=== PATIENT | female | born 1995 | race Caucasian/White ===

== ENCOUNTER 2020-04-15 13:19 | Emergency (ER) | payer OTHER ==
[2020-04-15 13:56] LABS: Urine Blood NEGATIVE (NEG); Urine Glucose NEGATIVE (NEG); Urine Protein NEGATIVE (NEG); Urine pH 5.5 (5.0-7.0)
[2020-04-15 14:09] LABS: Urine Bacteria >50 /HPF (<20); Urine Culture Reflex Order REFLEXED; Urine RBC <5 /HPF (NONE SEEN)
[2020-04-15 14:13] LABS: Absolute Lymphocytes (CBC) 2.8 K/uL (0.7-4.9); Basophils % 1.3 % (0-1.3); Hematocrit 40.6 % (36.0-45.0); Lymphocytes % 38.2 % (15.3-44.8); MPV 9.7 fL (7.6-11.3); RBC Red Blood Cell Count 4.87 M/uL (3.86-4.86)
[2020-04-15 14:30] LABS: ALT/SGPT 25 U/L (12-78); AST/SGOT 21 U/L (15-37); Albumin 4.1 g/dL (3.4-5.0); Alkaline Phosphatase 69 U/L (45-117); BUN Blood Urea Nitrogen 9 mg/dL (7-18); Bicarbonate 26 mmol/L (21-32); Bilirubin Direct 0.1 mg/dL (0-0.2); Bilirubin Total 0.4 mg/dL (0.2-1.0); Glucose Level 108 mg/dL (74-106); Lipase 67 U/L (73-393); Potassium 3.1 mmol/L (3.5-5.1); Protein, Total 8.1 g/dL (6.4-8.2); Sodium Level 142 mmol/L (136-145)
--- NOTE | 2020-04-15 15:02 | RAD REPORT ---
EXAM DESCRIPTION: CT - Abdomen Pelvis W Contrast - 04/15/2020 2:48 pm CLINICAL HISTORY: Abdominal pain COMPARISON: none. TECHNIQUE: Computed axial tomography of the abdomen pelvis was obtained. 100 cc Isovue-300 was admin istered intravenously. Oral contrast was not requested which limits evaluation of bowel. All CT scans are performed using dose optimization technique as appropriate and may include automated exposure control or mA/KV adjustment according to patient size. FINDINGS: The liver, spleen, pancreas, adrenal and kidneys appear unremarkable. There is no evidence of diverticulitis. Normal appendix 4.5 centimeter right ovarian cystic mass with small amount of free fluid A small umbilical hernia IMPRESSION: 4.5 centimeter right ovarian cystic mass with small amount of free fluid likely benign. Follow up ultrasound in a couple months recommended for evaluation
--- NOTE | 2020-04-15 15:08 | ER ---
Nurse's Notes [facility] Name: Nell Huffman Age: 25 yrs Sex: Female : 1995 Arrival Date: 04/15/2020 Time: 13:24 Bed 15 Private MD: Diagnosis: Unspecified ovarian cysts;Urinary tract infection, site not specified Presentation: 04/15 13:42 Chief complaint: Lower abdominal pain x 3 days. Denies N/V/D/fever. Coronavirus screen: ca1 Proceed with normal triage. Ebola Screen: No symptoms or risks identified at this time. Initial Sepsis Screen: Does the patient meet any 2 criteria? No. Patient's initial sepsis screen is negative. Does the patient have a suspected source of infection? No. Patient's initial sepsis screen is negative. Risk Assessment: Do you want to hurt yourself or someone else? Patient reports no desire to harm self or others. Onset of symptoms was April 12, 2020. 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 - Social history:: Smoking status: Patient denies any tobacco usage or history of. Screenin:44 Abuse screen: Denies threats or abuse. Denies injuries from another. Nutritional ca1 screening: No deficits noted. Tuberculosis screening: No symptoms or risk factors identified. Fall Risk None identified. Assessment: 13:54 General: Appears in no apparent distress. comfortable, Behavior is calm, cooperative, ca1 appropriate for age. Pain: Complains of pain in suprapubic area, right lower quadrant and left lower quadrant Pain currently is 8 out of 10 on a pain scale. Quality of pain is described as crampy, pressure, Pain began 2-3 days ago. Neuro: Level of Consciousness is awake, alert, obeys commands, Oriented to person, place, time, situation. Cardiovascular: Heart tones S1 S2 present Capillary refill < 3 seconds Patient's skin is warm and dry. Respiratory: Airway is patent Respiratory effort is even, unlabored, Respiratory pattern is regular, symmetrical, Breath sounds are clear bilaterally. GI: Abdomen is round non-distended, Bowel sounds present X 4 quads. Abd is soft and non tender X 4 quads. : No signs and/or symptoms were reported regarding the genitourinary system. EENT: No signs and/or symptoms were reported regarding the EENT system. Derm: Skin is intact, is healthy with good turgor, Skin is pink, warm \T\ dry. Musculoskeletal: Circulation, motion, and sensation intact. Capillary refill < 3 seconds. 14:55 Reassessment: Patient appears in no apparent distress at this time. Patient and/or ca1 family updated on plan of care and expected duration. Pain level reassessed. Patient is alert, oriented x 3, equal unlabored respirations, skin warm/dry/pink. 15:24 Reassessment: Patient appears in no apparent distress at this time. Patient and/or ca1 family updated on plan of care and expected duration. Pain level reassessed. Patient is alert, oriented x 3, equal unlabored respirations, skin warm/dry/pink. Vital Signs: 13:42 BP 122 / 80; Pulse 93; Resp 16; Temp 97.9; Pulse Ox 100% on R/A; Weight 89.36 kg; ca1 Height 5 ft. 5 in. (165.10 cm); Pain 10/10; 14:55 BP 103 / 54; Pulse 83; Resp 15 S; Pulse Ox 100% on R/A; ca1 13:42 Body Mass Index 32.78 (89.36 kg, 165.10 cm) ca1 ED Course: 13:24 Patient arrived in ED. as 13:42 Mark Deras NP is PHCP. pm1 13:42 Bossman Tamayo MD is Attending Physician. pm1 13:43 Triage completed. ca1 13:43 Arm band placed on. ca1 13:45 Nena Cortes, JOSE M is Primary Nurse. ca1 13:54 Patient has correct armband on for positive identification. Placed in gown. Bed in low ca1 position. Call light in reach. Side rails up X 1. Pulse ox on. NIBP on. Warm blanket given. 14:09 Inserted saline lock: 20 gauge in right antecubital area, using aseptic technique. dh4 14:49 CT Abd/Pelvis - IV Contrast Only In Process Unspecified. EDMS 15:14 No provider procedures requiring assistance completed. ca1 15:50 IV discontinued, intact, bleeding controlled, No redness/swelling at site. Pressure ca1 dressing applied. Administered Medications: 15:13 Drug: Rocephin 1 grams Route: IV; Rate: calculated rate; Site: right antecubital; ca1 15:25 Follow up: Response: No adverse reaction; IV Status: Completed infusion ca1 Outcome: 15:07 Discharge ordered by . pm1 15:50 Discharged to home ambulatory. ca1 15:50 Condition: stable 15:50 Discharge instructions given to patient, Instructed on discharge instructions, follow up and referral plans. medication usage, Demonstrated understanding of instructions, follow-up care, medications, Prescriptions given X 2. 15:50 Patient left the ED. ca1 Addendum: 04/18/2020 11:22 Addendum: Culture Results: Positive urine culture. No further action required. Bacteria i w sensitive to prescribed antibiotic. Signatures: Dispatcher [employer] EDMS Mitra Herring Irene, JOSE M SALGUERO iw Mark Deras NP NURSE AIDE pm1 Nena Cortes RN RN [facility] Wade Pina [facility]
--- NOTE | 2020-04-15 15:08 | EDPHYS ---
Physician Documentation [facility] Name: Nell Huffman Age: 25 yrs Sex: Female : 1995 Arrival Date: 04/15/2020 Time: 13:24 Bed 15 Private MD: ED Physician Bossman Tamayo HPI: 04/15 14:19 This 25 yrs old Female presents to ER via Ambulatory with complaints of pm1 Abdominal Pain. 14:19 The patient presents with abdominal pain , suprapubic. Onset: The symptoms/episode pm1 began/occurred 3 day(s) ago. The symptoms do not radiate. Associated signs and symptoms: Pertinent positives: Increased frequency, Pertinent negatives: nausea, vomiting, and diarrhea, chest pain, fever, shortness of breath. The symptoms are described as sharp. Modifying factors: The symptoms are alleviated by nothing, the symptoms are aggravated by nothing. Severity of pain: in the emergency department the pain is actually worse. The patient has not experienced similar symptoms in the past. 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 - Social history:: Smoking status: Patient denies any tobacco usage or history of. ROS: 14:23 Constitutional: Negative for fever, chills, and weight loss, Cardiovascular: Negative pm1 for chest pain, palpitations, and edema, Respiratory: Negative for shortness of breath, cough, wheezing, and pleuritic chest pain. 14:23 Back: Negative for injury and pain, MS/Extremity: Negative for injury and deformity, Skin: Negative for injury, rash, and discoloration. 14:23 Neuro: Negative for headache, weakness, numbness, tingling, and seizure. 14:23 Abdomen/GI: Positive for abdominal pain, of the suprapubic area, Negative for nausea, vomiting, and diarrhea. 14:23 : Positive for urinary frequency, Negative for small amounts, burning with urination, vaginal discharge. Exam: 14:23 Constitutional: This is a well developed, well nourished patient who is awake, alert, pm1 and in no acute distress. Head/Face: Normocephalic, atraumatic. 14:23 Back: No spinal tenderness. No costovertebral tenderness. Full range of motion. Skin: Warm, dry with normal turgor. Normal color with no rashes, no lesions, and no evidence of cellulitis. MS/ Extremity: Pulses equal, no cyanosis. Neurovascular intact. Full, normal range of motion. 14:23 Cardiovascular: Exam negative for acute changes, Rate: normal, Rhythm: regular, Pulses: no pulse deficits are appreciated, Edema: is not appreciated. 14:23 Respiratory: Exam negative for acute changes, respiratory distress, shortness of breath. 14:23 Abdomen/GI: Inspection: abdomen appears normal, Palpation: soft, in all quadrants, mild abdominal tenderness, in the suprapubic area, mass, is not appreciated, rebound tenderness, is not appreciated. 14:23 Neuro: Exam negative for acute changes, Orientation: is normal, Mentation: is normal, Motor: is normal, moves all fours. Vital Signs: 13:42 BP 122 / 80; Pulse 93; Resp 16; Temp 97.9; Pulse Ox 100% on R/A; Weight 89.36 kg; ca1 Height 5 ft. 5 in. (165.10 cm); Pain 10/10; 14:55 BP 103 / 54; Pulse 83; Resp 15 S; Pulse Ox 100% on R/A; ca1 13:42 Body Mass Index 32.78 (89.36 kg, 165.10 cm) ca1 MDM: 13:45 Patient medically screened. [facility] 14:25 Data reviewed: vital signs. Data interpreted: Pulse oximetry: on room air is 100 %. pm1 Interpretation: normal. 15:05 Counseling: I had a detailed discussion with the patient and/or guardian regarding: the pm1 historical points, exam findings, and any diagnostic results supporting the discharge/admit diagnosis, lab results, radiology results, the need for outpatient follow up, to return to the emergency department if symptoms worsen or persist or if there are any questions or concerns that arise at home. 04/15 13:49 Order name: Urine Microscopic Only; Complete Time: 14:35 ca1 04/15 13:52 Order name: Urine Dipstick--Ancillary (enter results); Complete Time: 14:35 eb 04/15 13:52 Order name: Urine --Ancillary (enter results); Complete Time: 14:35 eb 04/15 13:53 Order name: Basic Metabolic Panel pm1 04/15 13:53 Order name: CBC with Diff; Complete Time: 14:35 pm1 04/15 13:53 Order name: Hepatic Function; Complete Time: 14:35 pm1 04/15 13:49 Order name: Urine Dipstick-Ancillary (obtain specimen); Complete Time: 13:49 ca1 04/15 13:50 Order name: Urine Test (obtain specimen); Complete Time: 13:51 pm1 04/15 13:53 Order name: Lipase; Complete Time: 14:35 pm1 04/15 13:53 Order name: IV Saline Lock; Complete Time: 14:20 pm1 04/15 13:53 Order name: CT Abd/Pelvis - IV Contrast Only; Complete Time: 15:03 pm1 04/15 13:54 Order name: Basic Metabolic Panel; Complete Time: 14:35 EDMS 04/15 14:11 Order name: Urine Culture EDPR 04/15 13:53 Order name: Labs collected and sent; Complete Time: 14:20 pm1 Administered Medications: 15:13 Drug: Rocephin 1 grams Route: IV; Rate: calculated rate; Site: right antecubital; ca1 15:25 Follow up: Response: No adverse reaction; IV Status: Completed infusion ca1 Disposition: 04/16 05:37 Co-signature as Attending Physician, Bossman Tamayo MD I agree with the assessment and raj plan of care. Disposition: 04/15/20 15:07 Discharged to Home. Impression: Urinary tract infection, site not specified, Unspecified ovarian cysts. - Condition is Stable. - Discharge Instructions: Ovarian Cyst, Urinary Tract Infection, Adult. - Prescriptions for Bactrim DS 800- 160 mg Oral Tablet - take 1 tablet by ORAL route every 12 hours for 10 days; 20 tablet. Diclofenac Sodium 75 mg Oral Tablet, Delayed Release (E.C.) - take 1 tablet by ORAL route every 12 hours As needed; 30 tablet. - Medication Reconciliation Form, Thank You Letter, Antibiotic Education, Prescription Opioid Use form. - Follow up: Emergency Department; When: As needed; Reason: Worsening of condition. Follow up: Private Physician; When: 2 - 3 days; Reason: Recheck today's complaints, Continuance of care, Re-evaluation by your physician. - Problem is new. - Symptoms have improved. Signatures: Dispatcher [employer] EDBossman Hicks, Mark Savage MD, cha, DIE PRESS OPERATOR DIE PRESS OPERATOR pm1 Nena Cortes RN RN ca1 Corrections: (The following items were deleted from the chart) 04/15 15:50 15:07 04/15/2020 15:07 Discharged to Home. Impression: Urinary tract infection, site ca1 not specified; Unspecified ovarian cysts. Condition is Stable. Forms are Medication Reconciliation Form, Thank You Letter, Antibiotic Education, Prescription Opioid Use. Follow up: Emergency Department; When: As needed; Reason: Worsening of condition. Follow up: Private Physician; When: 2 - 3 days; Reason: Recheck today's complaints, Continuance of care, Re-evaluation by your physician. Problem is new. Symptoms have improved. pm1
[2020-04-15] MEDS ORDERED: CEFTRIAXONE/SWI 1gm 1 GM/10 ML SYR ONE (15:21)
[2020-04-15 16:00] VITALS: TEMP 97.9; O2SAT 100
[2020-04-15 16:02] VITALS: BP 103/54
== END 2020-04-15 15:50 | disposition home or self-care (01) ==
LOC: ER 13:19
DX: N39.0 Urinary tract infection, site not specified (principal); N83.209 Unspecified ovarian cyst, unspecified side
CPT/HCPCS: 87088; 85025; 87086; 80048; 36415; 81025; 82565; 80076; 87077; 87186; 83690; 74177; 96374; 99284; Q9967; J0696; 81003; 81015

== ENCOUNTER 2021-07-17 20:46 | Emergency (ER) | payer OTHER ==
[2021-07-17 22:04] LABS: Urine Blood Negative (Negative); Urine Glucose Negative (Negative); Urine Protein Negative (Negative); Urine Specific Gravity 1.015 (1.005-1.030); Urine pH 5.5 (5.0-7.0)
[2021-07-17] MEDS ORDERED: MORPHINE 2 MG/ML SYR ONE (22:37)
[2021-07-17] MEDS ORDERED: NA CHLORIDE 0.9% 1,000 ML ONE (22:37)
[2021-07-17 22:41] LABS: Absolute Lymphocytes (CBC) 2.9 K/uL (0.7-4.9); Basophils % 0.8 % (0-1.3); Hematocrit 38.5 % (36.0-45.0); Lymphocytes % 44.9 % (15.3-44.8); MPV 8.7 fL (7.6-11.3)
[2021-07-17 22:51] LABS: ALT/SGPT 30 U/L (12-78); AST/SGOT 22 U/L (15-37); Albumin 4.2 g/dL (3.4-5.0); Alkaline Phosphatase 76 U/L (45-117); BUN Blood Urea Nitrogen 10 mg/dL (7-18); Bicarbonate 24 mmol/L (21-32); Bilirubin Direct 0.2 mg/dL (0-0.2); Bilirubin Total 0.5 mg/dL (0.2-1.0); Glucose Level 89 mg/dL (74-106); Lipase 43 U/L (73-393); Potassium 3.4 mmol/L (3.5-5.1); Protein, Total 7.9 g/dL (6.4-8.2); Sodium Level 142 mmol/L (136-145)
[2021-07-17 23:27] LABS: Urine Specific Gravity/Preg 1.015 (1.005-1.030)
--- NOTE | 2021-07-18 01:37 | ER ---
Nurse's Notes [facility] Name: Nell Huffman Age: 26 yrs Sex: Female : 1995 Arrival Date: 07/17/2021 Time: 20:57 Bed 19 Private MD: Diagnosis: Pelvic and perineal pain;Lower abdominal pain, unspecified Presentation: 07/17 21:14 Chief complaint: Patient states: bilateral flank/lower abd pain. Coronavirus screen: df1 Vaccine status: Patient reports receiving the 2nd dose of the covid vaccine. At this time, the client does not indicate any symptoms associated with coronavirus-19. Ebola Screen: Patient negative for fever greater than or equal to 101.5 degrees Fahrenheit, and additional compatible Ebola Virus Disease symptoms Patient denies exposure to infectious person. Patient denies travel to an Ebola-affected area in the 21 days before illness onset. Initial Sepsis Screen: Does the patient meet any 2 criteria? No. Patient's initial sepsis screen is negative. Does the patient have a suspected source of infection? No. Patient's initial sepsis screen is negative. Risk Assessment: Do you want to hurt yourself or someone else? Patient reports no desire to harm self or others. 21:14 Method Of Arrival: Ambulatory df1 21:14 Acuity: KEN 3 df1 21:17 Note Pt dx with UTI last Thursday treating with Cipro. Pt states pain has increased df1 with back pain. 21:41 Onset of symptoms is unknown. 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 - Social history:: Smoking status: Patient denies any tobacco usage or history of. Screenin:50 Abuse screen: Denies threats or abuse. Denies injuries from another. Nutritional ld1 screening: No deficits noted. Tuberculosis screening: No symptoms or risk factors identified. Fall Risk None identified. Assessment: 21:50 General: Appears in no apparent distress. uncomfortable, Behavior is calm, cooperative, ld1 appropriate for age. Pain: Complains of pain in left low back, right low back, right lower quadrant and left lower quadrant Pain does not radiate. Pain currently is 7 out of 10 on a pain scale. Quality of pain is described as throbbing, Pain began 2-3 days ago. Is continuous. Neuro: Level of Consciousness is awake, alert, obeys commands, Oriented to person, place, time, situation. Cardiovascular: Capillary refill < 3 seconds Patient's skin is warm and dry. Respiratory: Airway is patent Respiratory effort is even, unlabored, Respiratory pattern is regular, symmetrical. GI: Abdomen is round non-distended, Bowel sounds present X 4 quads. Abd is soft Abdomen is tender to palpation X 4 quads. : No signs and/or symptoms were reported regarding the genitourinary system. EENT: No signs and/or symptoms were reported regarding the EENT system. Derm: No signs and/or symptoms reported regarding the dermatologic system. Musculoskeletal: No signs and/or symptoms reported regarding the musculoskeletal system. 23:21 Reassessment: Patient appears in no apparent distress at this time. No changes from ld1 previously documented assessment. Patient and/or family updated on plan of care and expected duration. Pain level reassessed. Patient is alert, oriented x 3, equal unlabored respirations, skin warm/dry/pink. Vital Signs: 21:14 BP 113 / 70; Pulse 86; Resp 18; Temp 98.3; Pulse Ox 100% on R/A; Weight 87.09 kg; df1 Height 5 ft. 5 in. (165.10 cm); Pain 7/10; 21:50 BP 118 / 72; Pulse 89; Resp 18; Pulse Ox 100% on R/A; Pain 7/10; ld1 23:21 BP 122 / 77; Pulse 90; Resp 18; Pulse Ox 100% ; ld1 07/18 00:06 BP 120 / 74; Pulse 88; Resp 18; Temp 98.6(O); Pulse Ox 100% on R/A; Pain 2/10; kc4 01:23 BP 124 / 76; Pulse 78; Resp 18; Temp 98.6(O); Pulse Ox 100% on R/A; kc4 01:49 BP 122 / 78; Pulse 88; Resp 18; Pulse Ox 99% on R/A; Pain 0/10; kc4 07/17 21:14 Body Mass Index 31.95 (87.09 kg, 165.10 cm) df1 ED Course: 07/17 20:57 Patient arrived in ED. cf2 21:15 Triage completed. df1 21:46 Allison Song, RN is Primary Nurse. ld1 21:50 Patient has correct armband on for positive identification. Call light in reach. ld1 21:50 Pulse ox on. NIBP on. Door closed. Noise minimized. Warm blanket given. ld1 21:50 No provider procedures requiring assistance completed. ld1 21:55 Bossman Bella PA is PHCP. cp 21:55 Rod Huerta MD is Attending Physician. cp 21:55 Arm band placed on. kc4 23:39 CT Abd/Pelvis - IV Contrast Only In Process Unspecified. EDMS 07/18 01:31 Wet Prep Sent. em 01:31 GC (GONORR/CHLAMYDIA) Probe Sent. em 01:50 IV discontinued, intact, bleeding controlled, No redness/swelling at site. Pressure kc4 dressing applied. Administered Medications: 07/17 22:24 Drug: morphine 2 mg Route: IVP; Site: right antecubital; ld1 22:24 Drug: NS 0.9% 1000 ml Route: IV; Rate: 1 bolus; Site: right antecubital; ld1 23:23 Follow up: Response: No adverse reaction; IV Status: Completed infusion; IV Intake: ld1 1000ml 07/18 01:41 Drug: Zithromax (azithromycin) 1 grams Route: PO; kc4 01:51 Follow up: Response: No adverse reaction kc4 01:41 Drug: Rocephin (cefTRIAXone) 1 grams Route: IV; Rate: calculated rate; Site: right kc4 antecubital; 01:51 Follow up: Response: No adverse reaction; IV Status: Completed infusion kc4 Intake: 07/17 23:23 IV: 1000ml; Total: 1000ml. ld1 Outcome: 07/18 01:36 Discharge ordered by . cp 01:49 Condition: stable kc4 01:50 Discharged to home ambulatory, with significant other. kc4 01:50 Discharge instructions given to patient, significant other, Instructed on discharge instructions, follow up and referral plans. medication usage, Demonstrated understanding of instructions, follow-up care, medications. 01:52 Patient left the ED. kc4 Signatures: Dispatcher [employer] Catrachito Mckeon RN RN Bossman Power PA PA cp Frazier, Celesta 2 Allison Song RN RN ld1 Faith Peterson kc4 Billie Carbajal df1
--- NOTE | 2021-07-18 01:38 | EDPHYS ---
Physician Documentation [facility] Name: Nell Huffman Age: 26 yrs Sex: Female : 1995 Arrival Date: 07/17/2021 Time: 20:57 Bed 19 Private MD: ED Physician Rod Huerta HPI: 07/17 22:15 This 26 yrs old Female presents to ER via Ambulatory with complaints of cp Abdominal Pain. 22:15 The patient presents with abdominal pain in the lower abdomen. cp 22:15 The patient presents with pelvic pain. cp 22:15 Onset: The symptoms/episode began/occurred last week. 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 Patient reports worsening pain and reports pain with intercourse. 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 - Social history:: Smoking status: Patient denies any tobacco usage or history of. ROS: 22:20 Constitutional: Negative for body aches, chills, fever, poor PO intake. cp 22:20 Eyes: Negative for injury, pain, redness, and discharge. cp 22:20 Cardiovascular: Negative for chest pain. 22:20 Respiratory: Negative for cough, shortness of breath, wheezing. 22:20 Abdomen/GI: Positive for abdominal pain, of the suprapubic area, right lower quadrant and left lower quadrant. 22:20 : Positive for pelvic pain, flank pain, Negative for vaginal bleeding, vaginal discharge. 22:20 Skin: Negative for rash. 22:20 All other systems are negative. Exam: 22:30 Constitutional: The patient appears in no acute distress, alert, awake, non-toxic, well cp developed, well nourished. 22:30 Head/Face: Normocephalic, atraumatic. cp 22:30 Eyes: Periorbital structures: appear normal, Conjunctiva: normal, no exudate, no injection, Sclera: no appreciated abnormality, Lids and lashes: appear normal, bilaterally. 22:30 ENT: External ear(s): are unremarkable, Nose: is normal, Mouth: Lips: moist, Oral mucosa: moist, Posterior pharynx: Airway: no evidence of obstruction, patent. 22:30 Chest/axilla: Inspection: normal. 22:30 Cardiovascular: Rate: normal. 22:30 Respiratory: the patient does not display signs of respiratory distress, Respirations: normal, no use of accessory muscles, no retractions, labored breathing, is not present, Breath sounds: are clear throughout, no decreased breath sounds, no stridor, no wheezing. 22:30 Abdomen/GI: Inspection: abdomen appears normal, Bowel sounds: active, all quadrants, Palpation: soft, in all quadrants, moderate abdominal tenderness, in the right lower quadrant and left lower quadrant, rebound tenderness, is not appreciated, involuntary guarding, is not appreciated. 22:30 Back: CVA tenderness, is absent. 07/18 01:30 : Pelvic Exam: External exam: is normal, Speculum exam: no bleeding is noted, no cp cervicitis, os that is closed, bimanual exam reveals cervical motion tenderness, os that is closed, uterine tenderness, right adnexal tenderness, left adnexal tenderness, no adnexal mass on right, no adnexal mass on left, discharge, white, the nurse was present for the exam, Sexual behavior: the patient is sexually active, and reports a single partner. Vital Signs: 07/17 21:14 BP 113 / 70; Pulse 86; Resp 18; Temp 98.3; Pulse Ox 100% on R/A; Weight 87.09 kg; df1 Height 5 ft. 5 in. (165.10 cm); Pain 7/10; 21:50 BP 118 / 72; Pulse 89; Resp 18; Pulse Ox 100% on R/A; Pain 7/10; ld1 23:21 BP 122 / 77; Pulse 90; Resp 18; Pulse Ox 100% ; ld1 07/18 00:06 BP 120 / 74; Pulse 88; Resp 18; Temp 98.6(O); Pulse Ox 100% on R/A; Pain 2/10; kc4 01:23 BP 124 / 76; Pulse 78; Resp 18; Temp 98.6(O); Pulse Ox 100% on R/A; kc4 01:49 BP 122 / 78; Pulse 88; Resp 18; Pulse Ox 99% on R/A; Pain 0/10; kc4 07/17 21:14 Body Mass Index 31.95 (87.09 kg, 165.10 cm) df1 MDM: 07/17 21:57 Patient medically screened. cp 07/18 01:35 Data reviewed: vital signs, nurses notes, lab test result(s), radiologic studies, CT cp scan. 01:35 Differential diagnosis: ovarian cyst, pelvic inflammatory disease, urinary tract cp infection, vaginosis, appendicitis, Ovarian Torsion. Counseling: I had a detailed discussion with the patient and/or guardian regarding: the historical points, exam findings, and any diagnostic results supporting the discharge/admit diagnosis, lab results, radiology results, the need for outpatient follow up, an OB/Gyne specialist, to return to the emergency department if symptoms worsen or persist or if there are any questions or concerns that arise at home. Response to treatment: the patient's symptoms have markedly improved after treatment, and as a result, I will discharge patient. 07/17 21:31 Order name: Urine --Ancillary (enter results); Complete Time: 23:28 mw2 07/17 22:04 Order name: Urine Dipstick-Ancillary; Complete Time: 22:07 EDMS 07/17 22:07 Order name: Basic Metabolic Panel; Complete Time: 23:28 cp 07/17 23:28 Interpretation: Normal except: K 3.4; CL 109. cp 07/17 22:07 Order name: CBC with Diff; Complete Time: 23:28 cp 07/17 23:28 Interpretation: Normal except: LYM% 44.9. cp 07/17 22:07 Order name: Hepatic Function; Complete Time: 23:28 cp 07/17 23:29 Interpretation: Normal except: GLOB 3.7. cp 07/17 22:07 Order name: Lipase; Complete Time: 23:28 cp 07/17 23:30 Interpretation: Abnormal: LIP 43. cp 07/17 21:25 Order name: Urine Dipstick-Ancillary (obtain specimen); Complete Time: 21:29 df1 07/17 22:07 Order name: CT Abd/Pelvis - IV Contrast Only cp 07/18 00:36 Order name: GC (GONORR/CHLAMYDIA) Probe cp 07/18 00:36 Order name: Wet Prep; Complete Time: 01:45 cp 07/17 21:25 Order name: Urine Test (obtain specimen); Complete Time: 21:31 df1 07/17 22:07 Order name: IV Saline Lock; Complete Time: 22:24 cp 07/17 22:07 Order name: Labs collected and sent; Complete Time: 22:24 cp 07/18 00:36 Order name: Pelvic Exam Setup; Complete Time: 01:23 cp Administered Medications: 07/17 22:24 Drug: morphine 2 mg Route: IVP; Site: right antecubital; ld1 22:24 Drug: NS 0.9% 1000 ml Route: IV; Rate: 1 bolus; Site: right antecubital; ld1 23:23 Follow up: Response: No adverse reaction; IV Status: Completed infusion; IV Intake: ld1 1000ml 07/18 01:41 Drug: Zithromax (azithromycin) 1 grams Route: PO; kc4 01:51 Follow up: Response: No adverse reaction kc4 01:41 Drug: Rocephin (cefTRIAXone) 1 grams Route: IV; Rate: calculated rate; Site: right kc4 antecubital; 01:51 Follow up: Response: No adverse reaction; IV Status: Completed infusion kc4 Disposition: 02:14 Co-signature as Attending Physician, Rod Huerta MD. pkl Disposition Summary: 07/18/21 01:36 Discharge Ordered Location: Home cp Problem: new cp Symptoms: have improved cp Condition: Stable cp Diagnosis - Pelvic and perineal pain cp - Lower abdominal pain, unspecified cp Followup: cp - With: Private Physician - When: 1 week - Reason: Recheck today's complaints Discharge Instructions: - Discharge Summary Sheet cp - Abdominal Pain, Adult cp - Pelvic Pain, Female cp Forms: - Medication Reconciliation Form cp - Thank You Letter cp - Antibiotic Education cp - Prescription Opioid Use cp Prescriptions: - Zofran 4 mg Oral Tablet - take 1 tablet by ORAL route every 12 hours As needed; 20 tablet; Refills: 0, cp Product Selection Permitted - Doxycycline Hyclate 100 mg Oral Tablet - take 1 tablet by ORAL route every 12 hours; 20 tablet; Refills: 0, Product cp Selection Permitted - Metronidazole 500 mg Oral Tablet - take 1 tablet by ORAL route every 8 hours; 30 tablet; Refills: 0, Product cp Selection Permitted - Diclofenac Sodium 75 mg Oral tablet,delayed release (DR/EC) - take 1 tablet by ORAL route 2 times per day; 20 tablet; Refills: 0, Product cp Selection Permitted Signatures: Dispatcher [employer] Rod Awad MD MD pkl Bossman Bella PA PA cp Dibbern, Lauren, JOSE M RN ld1 [facility] Billie Carbajal df1
[2021-07-18] MEDS ORDERED: CEFTRIAXONE 1000 MG/VIAL ONE (01:59)
[2021-07-18] MEDS ORDERED: AZITHROMYCIN 250 MG TAB ONE (01:59)
[2021-07-18 02:03] VITALS: TEMP 98.6
[2021-07-18 02:07] VITALS: BP 122/78; O2SAT 99
--- NOTE | 2021-07-18 12:14 | RAD REPORT ---
EXAM DESCRIPTION: CT - Abdomen Pelvis W Contrast - 07/18/2021 6:15 am CLINICAL HISTORY: 26 years Female lower abdomen pain TECHNIQUE: Contiguous axial images obtained through the abdomen and pelvis following intravenous con trast administration. Coronal and sagittal reformatted images provided. This CT exam was performed according to our departmental dose-optimization program, which includes on e or more of the following dose reduction techniques: automated exposure control, adjustment of the m A and/or kV according to patient size, and/or use of iterative reconstruction technique. COMPARISON: 04/15/2020 FINDINGS: Previously seen right ovarian cyst has resolved. Normal ovaries and uterus. The appendix is normal. Mild colonic constipation without bowel inflammation, obstruction, free intra peritoneal air, or ascites. The lung bases, liver, biliary tree, gallbladder, pancreas, spleen, adrenal glands, kidneys, urinary bladder, and osseous structures are unremarkable. IMPRESSION: Mild colonic constipation without bowel inflation. No other acute abdominal or pelvic abnormalities. Previously seen right ovarian cyst has resolved. Electronically signed by: Romy Perea MD 07/17/2021 11:51 PM CDT Due to temporary technical issues with the PACS/Fluency reporting system, reports are being signed by the in house radiologist without review as a courtesy to ensure prompt reporting. The interpreting r adiologist is fully responsible for the content of the report.
[2021-07-24 03:52] LABS: C.trachomatis RNA,TMA Not Detected (Not Detected)
== END 2021-07-18 01:52 | disposition home or self-care (01) ==
LOC: ER 20:46
DX: R10.2 Pelvic and perineal pain (principal)
CPT/HCPCS: 96361; 85025; 80048; 36415; 81025; 80076; 87210; 81003; 83690; 87590; 87490; 74177; 96375; 96374; 99284; Q9967; J2270; J7030

== ENCOUNTER 2022-01-15 11:52 | Emergency (ER) | payer OTHER ==
--- OUTSIDE RECORDS SUMMARY | 2022-01-15 11:55 | XMS REPORT | Continuity of Care Document ---
:[address] [facility] t Address [address] [place] [address] Care Team Providers Name Role Phone Sheri Hendrickson Primary Care Physician RADIOLOGY Attending Clinician Unavailable Radiology Attending Clinician Unavailable Dominic DIRECTOR OF AGRICULTURE Attending Clinician DOMINIC Attending Clinician Unavailable Doctor Unassigned, Name Attending Clinician Unavailable Payers Payer Name Policy Type Policy Number Effective Date Expiration Date S ource Problems This patient has no known problems. Allergies, Adverse Reactions, Alerts Allergy Allergy Status Severity Reaction(s) Onset Inactive Treating Comm ents Source Name Type Date Date Clinician NO KNOWN Drug Active [facility]I [facility] Social History Social Habit Start Date Stop Date Quantity Comments Source Exposure to Not sure [facility] SARS-CoV-2 (event) Medica l Branch Sex Assigned At [birth year] [facility] 00:00:00 00:00:00 Medical Branch Smoking Status Start Date Stop Date Source Unknown if ever smoked [facility] Medical Branch Medications This patient has no known medications. Procedures Procedure Date / Time Performed Performing Clinician John rachna BI ULTRASOUND BREAST 2021-06-11 17:06:45 Requisition, Paper [facility] LIMITED [facility] Medical Branch BI ULTRASOUND BREAST 2021-04-09 18:58:41 Theodora Alfaro [facility] COMPLETE [facility] Medical Branch CONSENT/REFUSAL FOR 2021-04-09 18:20:12 Doctor Unassigned, No [facility] DIAGNOSIS AND [facility] Medical Branch TREATMENT ASSIGNMENT OF BENEFITS 2021-04-09 18:19:57 Doctor Unassigned, No [facility] Medical Branch Encounters Start End Encounter Admission Attending Care Care Encounter Source Date/Time Date/Time Type Type Clinicians Facility Department ID 2021-06-14 2021-06-14 Outpatient R RADIOLOGY [facility] [id number] Univers 17:00:00 17:00:00 [id number] ity [facility] 2021-06-11 2021-06-11 [facility] Radiology [facility] [id number] Univers 11:00:00 23:59:00 Encounter Asif [id number] ity [facility] [id number] [facility] [id number] [facility] 806 Branch 2021-06-11 2021-06-11 Outpatient [facility] [id number] Univers 11:00:00 11:00:00 [id number] ity [facility] 2021-06-11 2021-06-11 Outpatient R RADIOLOGY [facility] [id number] Univers 00:00:00 00:00:00 ity of [facility] 2021-04-09 2021-04-09 [facility] [id number] Univers 13:23:46 23:59:00 Encounter Theodora Gold [id number] ity of [place] [id number] [facility] [id number] [facility] 806 Branch 2021-04-09 2021-04-09 Outpatient R [facility] [id number] Univers 00:00:00 00:00:00 THEODORA avendano [facility] 2021-04-09 2021-04-09 Orders Doctor MENDOZA [id number] Univers 00:00:00 00:00:00 Only Unassigned, ROXY [id number] ity of [place] [facility] [id number] [facility] [id number] [place] [address] Branch Results Test Description Test Time Test Comments Results Result [facility] e Comments BI ULTRASOUND 2021-04-09 Examination:BI Univers ity of BREAST COMPLETE 19:25:[address] [facility] LEFT BREAST COMPLETE Branch LEFT History:Patient is 26 year old and is seen for: ?Unspecified lump in the left breast, upper inner quadrant. Comparisons : None available Findings:Survey ultrasound of the left breast and axilla was performed. There is no evidence of suspicious masses or other abnormal findings in the left breast or axilla. Specifically, a ridge of normal-appearing breast tissue is noted at the palpable area of concern in the left breast at 9:00, 6 cm from the nipple. Impression: There is no sonographic evidence of malignancy. Recommendation:F ollow-up at age 40 or based on current ACR guidelines Clinical follow-up is also recommended, and further management of clinical findings should be based on the results of clinical evaluation. BI-RADS Category:Left 1 - Negative
--- NOTE | 2022-01-15 12:45 | RAD REPORT ---
EXAM DESCRIPTION: Radha Single View01/15/2022 12:38 pm CLINICAL HISTORY: Chest pain COMPARISON: none FINDINGS: Haziness overlying the lung bases. Main lungs appear clear. The lungs appear clear of acute infiltrate. The heart is normal size IMPRESSION: Haziness overlying the lung bases likely overlying soft tissue. If patient has clinical symptoms to suggest an infiltrate then PA and lateral chest series would be recommended
[2022-01-15 13:12] LABS: Lymphocytes % 38.3 % (15.3-44.8); MPV 8.7 fL (7.6-11.3); RBC Red Blood Cell Count 5.28 M/uL (3.86-4.86)
[2022-01-15 13:15] LABS: Protime INR 0.97
[2022-01-15 13:24] LABS: ALT/SGPT 25 U/L (12-78); AST/SGOT 15 U/L (15-37); Alkaline Phosphatase 86 U/L (45-117); BUN Blood Urea Nitrogen 8 mg/dL (7-18); Bicarbonate 27 mmol/L (21-32); Bilirubin Direct 0.1 mg/dL (0-0.2); Bilirubin Total 0.3 mg/dL (0.2-1.0); Glucose Level 110 mg/dL (74-106); Magnesium 1.9 mg/dL (1.8-2.4); NT PRO-BNP 14 pg/mL (<125); Potassium 3.5 mmol/L (3.5-5.1); Protein, Total 7.9 g/dL (6.4-8.2); Sodium Level 138 mmol/L (136-145)
[2022-01-15 13:25] LABS: Troponin High Sensitivity < 3.0 pg/mL (<58.9)
[2022-01-15] MEDS ORDERED: ONDANSETRON 4 MG/2 ML VIAL ONE (14:46)
[2022-01-15] MEDS ORDERED: MORPHINE 4 MG/ML SYR ONE (14:46)
--- NOTE | 2022-01-15 15:55 | RAD REPORT ---
EXAM DESCRIPTION: 22 - Chest For Pe Angio - 01/15/2022 3:22 pm CLINICAL HISTORY: Chest pain COMPARISON: None. TECHNIQUE: Dynamically enhanced axial 3 mm thick images of the chest were obtained during administra tion of <100> mL Isovue 370 IV contrast. Coronal and oblique reconstruction images were generated and reviewed. Exam utilizes a protocol for optimal evaluation of pulmonary arterial tree. Maximum intensity projections 3D imaging was utilized All CT scans are performed using dose optimization technique as appropriate and may include automated exposure control or mA/KV adjustment according to patient size. FINDINGS: A pulmonary embolus is not seen. A thoracic aortic aneurysm is not noted. A pleural effusion is not seen. A pericardial effusion is not seen. Calcified granuloma left lung. 4 millimeters subpleural nodule left lower lobe. IMPRESSION: Negative for a pulmonary embolism. 4 millimeter nodule left lower lobe likely benign. If patient is high risk follow up CT chest in 6-12 months would be recommended per Fleischner guidelines
--- NOTE | 2022-01-15 16:20 | EDPHYS ---
Physician Documentation [facility] Name: Nell Huffman Age: 26 yrs Sex: Female : 1995 Arrival Date: 01/15/2022 Time: 11:54 Bed 17 Private MD: ED Physician Casper Singleton HPI: 01/15 12:04 This 26 yrs old Female presents to ER via Ambulatory with complaints of Chest Pain, Arm jmm Pain. 12:04 The patient or guardian reports chest pain that is located primarily in the substernal jmm area. The pain radiates to the left arm. This is a 26-year-old female no Janay conditions presents emerged department with complaints of left breast pain which radiates to the left axilla. Symptoms been ongoing for approximately 2 months now. Patient did have an outpatient ultrasound performed. Patient denies fever or chills. Patient states pain has intensified recently. Complains of some mild shortness of breath. Denies fever. Denies redness or drainage.. Historical: - Allergies: 12:01 No Known Allergies; ll1 - PMHx: 12:01 None; ll1 - PSHx: 12:01 section; ll1 - Immunization history:: Client reports receiving the 2nd dose of the Covid vaccine. - Social history:: Smoking status: Patient denies any tobacco usage or history of. ROS: 12:04 Constitutional: Negative for fever, chills, and weight loss. jmm 12:04 Cardiovascular: Positive for chest pain. 12:04 All other systems are negative. Exam: 12:04 Constitutional: This is a well developed, well nourished patient who is awake, alert, jmm and in no acute distress. Head/Face: atraumatic. Eyes: EOMI, no conjunctival erythema appreciated ENT: Moist Mucus Membranes Neck: Trachea midline, Supple Chest/axilla: Normal chest wall appearance and motion. 12:04 Respiratory: Normal respirations, no respiratory distress appreciated Abdomen/GI: Non distended, soft Back: Normal ROM Skin: General appearance color normal MS/ Extremity: Moves all extremities, no obvious deformities appreciated, no edema noted to the lower extremities Neuro: Awake and alert Psych: Behavior is normal, Mood is normal, Patient is cooperative and pleasant 12:04 Chest/axilla: Inspection: normal, Palpation: is normal, Breasts: swelling, that is mild of the left breast. 12:04 Cardiovascular: Rate: normal, Rhythm: regular. 12:04 Respiratory: the patient does not display signs of respiratory distress, Respirations: normal, Breath sounds: are clear throughout. Vital Signs: 12:02 BP 121 / 80; Pulse 102; Resp 16; Temp 97.6; Pulse Ox 100% ; Weight 95.25 kg; Height 5 ll1 ft. 5 in. (165.10 cm); Pain 8/10; 16:39 BP 98 / 66; Pulse 85; Resp 17; Temp 97.8(O); Pulse Ox 100% ; Pain 1/10; ll1 12:02 Body Mass Index 34.95 (95.25 kg, 165.10 cm) ll1 MDM: 12:04 Patient medically screened. [facility] 16:16 Data reviewed: vital signs, nurses notes. Counseling: I had a detailed discussion with osman the patient and/or guardian regarding: the historical points, exam findings, and any diagnostic results supporting the discharge/admit diagnosis, lab results, radiology results, the need for outpatient follow up, to return to the emergency department if symptoms worsen or persist or if there are any questions or concerns that arise at home. ED course: Labs and imaging studies were unremarkable. Patient advised to follow-up with general surgery for evaluation due to left breast pain. Stated that the I would be unable to rule out malignancy. I do not currently suspect abscess. Patient is afebrile. Skin is not indurated.. 01/15 12:05 Order name: Basic Metabolic Panel; Complete Time: 13: [facility] 01/15 12:05 Order name: CBC with Diff; Complete Time: 13:18 [facility] 01/15 12:05 Order name: LFT's; Complete Time: 13: [facility] 01/15 12:05 Order name: Magnesium; Complete Time: 13: [facility] 01/15 12:05 Order name: NT PRO-BNP; Complete Time: 13: [facility] 01/15 12:05 Order name: Troponin HS; Complete Time: 13: [facility] 01/15 12:05 Order name: XRAY Chest (1 view); Complete Time: 12:46 [facility] 01/15 12:05 Order name: EKG; Complete Time: 12:05 [facility] 01/15 12:38 Order name: D-Dimer; Complete Time: 13:34 [facility] 01/15 13:05 Order name: Protime (+INR); Complete Time: 13:34 [facility] 01/15 13:32 Order name: CT Chest For PE Angio; Complete Time: 15:56 [facility] 01/15 12:05 Order name: Cardiac monitoring; Complete Time: 12:12 [facility] 01/15 12:05 Order name: EKG - Nurse/Tech; Complete Time: 12:12 [facility] 01/15 12:05 Order name: IV Saline Lock; Complete Time: 13:00 [facility] 01/15 12:05 Order name: Labs collected and sent; Complete Time: 13:00 [facility] 01/15 12:05 Order name: O2 Per Protocol; Complete Time: 12:12 [facility] 01/15 12:05 Order name: O2 Sat Monitoring; Complete Time: 12:12 [facility] 01/15 14:40 Order name: Urine Test (obtain specimen) [facility] Administered Medications: 14:45 Drug: Zofran (Ondansetron) 4 mg Route: IVP; Site: right antecubital; ll1 16:30 Follow up: Response: No adverse reaction ll1 14:46 Drug: morphine 4 mg Route: IVP; Site: right antecubital; ll1 16:30 Follow up: Response: Pain is decreased ll1 Disposition: 18:03 Co-signature as Attending Physician, Casper Singleton MD I agree with the assessment and kdr plan of care. Disposition Summary: 01/15/22 16:19 Discharge Ordered Location: Home [facility] Condition: Stable [facility] Diagnosis - Chest pain, unspecified jmm - Breast Pain [facility] Followup: [facility] - With: Private Physician - When: 2 - 3 days - Reason: Recheck today's complaints, Continuance of care, Re-evaluation by your physician Followup: [facility] - With: Mil Mc MD - When: 2 - 3 days - Reason: Recheck today's complaints, Continuance of care, Re-evaluation by your physician Discharge Instructions: - Discharge Summary Sheet jmm - Nonspecific Chest Pain, Adult jmm - Breast Tenderness m Forms: - Medication Reconciliation Form [facility] - Thank You Letter [facility] - Antibiotic Education [facility] - Prescription Opioid Use [facility] Prescriptions: - Diclofenac Sodium 75 mg Oral Tablet Sustained Release - take 1 tablet by ORAL route 2 times per day; 30 tablet; Refills: 0, Product [facility] Selection Permitted - orphenadrine citrate 100 mg Oral Tablet Sustained Release - take 1 tablet by ORAL route 2 times per day As needed; 20 tablet; Refills: 0, [facility] Product Selection Permitted Signatures: Dispatcher [employer] EDMS Casper Singleton MD MD kdr Mickail, Joel, PA PA jmm Lewis, Lynsay RN RN ll1 Corrections: (The following items were deleted from the chart) 13:05 12:05 PROTIME (+INR)+[email or web address].BRZ ordered. [facility]OK EDMS
--- NOTE | 2022-01-15 16:20 | ER ---
Nurse's Notes [facility] Name: Nell Huffman Age: 26 yrs Sex: Female : 1995 Arrival Date: 01/15/2022 Time: 11:54 Bed 17 Private MD: Diagnosis: Chest pain, unspecified;Breast Pain Presentation: 01/15 12:02 Chief complaint: Patient states: L sided CP radiates down L arm for a few weeks, more ll1 constant this week. Saw here PCP 2 weeks ago for this. Concerned it might be her heart or breast problem. Coronavirus screen: Vaccine status: Patient reports receiving the 2nd dose of the covid vaccine. Client denies travel out of the [place] in the last 14 days. At this time, the client does not indicate any symptoms associated with coronavirus-19. Ebola Screen: Patient denies travel to an Ebola-affected area in the 21 days before illness onset. Initial Sepsis Screen: Does the patient meet any 2 criteria? HR > 90 bpm. No. Patient's initial sepsis screen is negative. Does the patient have a suspected source of infection? No. Patient's initial sepsis screen is negative. Risk Assessment: Do you want to hurt yourself or someone else? Patient reports no desire to harm self or others. Onset of symptoms was December 25, 2021. 12:02 Method Of Arrival: Ambulatory ll1 12:02 Acuity: KEN 3 ll1 Triage Assessment: 12:03 General: Appears in no apparent distress. Behavior is calm, cooperative, appropriate ll1 for age. Pain: Complains of pain in chest Quality of pain is described as aching, pressure. Neuro: No deficits noted. Cardiovascular: Reports chest pain. Musculoskeletal: Reports pain in left arm. Historical: - Allergies: 12:01 No Known Allergies; ll1 - PMHx: 12:01 None; ll1 - PSHx: 12:01 section; ll1 - Immunization history:: Client reports receiving the 2nd dose of the Covid vaccine. - Social history:: Smoking status: Patient denies any tobacco usage or history of. Screenin:43 Abuse screen: Denies threats or abuse. Nutritional screening: No deficits noted. ll1 Tuberculosis screening: No symptoms or risk factors identified. Fall Risk None identified. Assessment: 12:30 General: Appears in no apparent distress. Behavior is calm, cooperative. ll1 12:30 Pain: Complains of pain in anterior aspect of left upper chest and left lateral ll1 posterior chest Pain radiates to left axilla Pain currently is 6 out of 10 on a pain scale. Pain began suddenly, HAS BEEN PRESENT FOR OVER A MO AND WORSE WHEN SHE IS ON HER MENSTRAL CYCLE. 13:30 Reassessment: No changes from previously documented assessment. Patient and/or family ll1 updated on plan of care and expected duration. Pain level reassessed. Patient is alert, oriented x 3, equal unlabored respirations, skin warm/dry/pink. 16:38 Reassessment: Patient and/or family updated on plan of care and expected duration. Pain ll1 level reassessed. Patient is alert, oriented x 3, equal unlabored respirations, skin warm/dry/pink. Pain: Complains of pain in left axilla Pain currently is 6 out of 10 on a pain scale. Vital Signs: 12:02 BP 121 / 80; Pulse 102; Resp 16; Temp 97.6; Pulse Ox 100% ; Weight 95.25 kg; Height 5 ll1 ft. 5 in. (165.10 cm); Pain 8/10; 16:39 BP 98 / 66; Pulse 85; Resp 17; Temp 97.8(O); Pulse Ox 100% ; Pain 1/10; ll1 12:02 Body Mass Index 34.95 (95.25 kg, 165.10 cm) ll1 ED Course: 11:54 Patient arrived in ED. mr 11:55 Vincenzo Campoverde PA is PHCP. [facility] 11:55 Casper Singleton MD is Attending Physician. [facility] 12:01 Arm band placed on Patient placed in an exam room, on a stretcher. 1 12:03 Triage completed. ll1 12:28 Jennifer Stout, JOSE M is Primary Nurse. 1 12:30 EKG done, by aerospace technician. reviewed by Vincenzo PARISI. 1 12:30 EVALUATION AND BREAST EXAM. 1 12:39 XRAY Chest (1 view) In Process Unspecified. EDMS 12:44 Bed in low position. Call light in reach. Side rails up X 1. 1 13:00 Basic Metabolic Panel Sent. 5 13:00 CBC with Diff Sent. [facility] 13:00 LFT's Sent. [facility] 13:00 Magnesium Sent. [facility] 13:00 NT PRO-BNP Sent. [facility] 13:01 Troponin HS Sent. [facility] 13:01 D-Dimer Sent. [facility] 13:01 Initial lab(s) drawn, by az, sent to lab. Inserted saline lock: 20 gauge in right [facility] antecubital area, using aseptic technique. Blood collected. 15:24 CT Chest For PE Angio In Process Unspecified. EDMS 16:26 Mil Mc MD is Referral Physician. [facility] 16:46 IV discontinued, intact, bleeding controlled, No redness/swelling at site. Pressure ll1 dressing applied. Administered Medications: 14:45 Drug: Zofran (Ondansetron) 4 mg Route: IVP; Site: right antecubital; ll1 16:30 Follow up: Response: No adverse reaction ll1 14:46 Drug: morphine 4 mg Route: IVP; Site: right antecubital; ll1 16:30 Follow up: Response: Pain is decreased 1 Outcome: 16:19 Discharge ordered by . [facility] 16:45 Discharged to home ambulatory. 1 16:45 Condition: improved 16:45 Discharge instructions given to patient, family, Instructed on discharge instructions, follow up and referral plans. Demonstrated understanding of instructions, follow-up care, medications, Prescriptions given X 2. 16:47 Patient left the ED. 1 Signatures: Dispatcher [employer] EDAR Vincenzo Campoverde PA PA isai Mitul, Radha Gonzalez [facility] Jennifer Stuot RN RN ll1 Corrections: (The following items were deleted from the chart) 13:05 13:00 PROTIME (+INR)+[email or web address] drawn and sent. [facility] EDAR
[2022-01-15 16:53] VITALS: O2SAT 100
[2022-01-15 16:54] VITALS: BP 98/66; TEMP 97.8
== END 2022-01-15 16:47 | disposition home or self-care (01) ==
LOC: ER 11:52
DX: R07.9 Chest pain, unspecified (principal); N64.4 Mastodynia
CPT/HCPCS: 93005; 85025; 80048; 36415; 83735; 85610; 85379; 80076; 84484; 83880; 71275; 71045; 96375; 96374; 99284; Q9967; J2405

== ENCOUNTER 2022-05-22 10:16 | Emergency (ER) | payer OTHER ==
--- OUTSIDE RECORDS SUMMARY | 2022-05-22 10:20 | XMS REPORT | Continuity of Care Document ---
:1995 Author Organization [facility] t Address [address] [place] [address] Care Team Providers Name Role Phone Emeka Sheri Mary Primary Care Physician RADIOLOGY Attending Clinician Unavailable Radiology Attending Clinician Unavailable Theodora Arias Attending Clinician THEODORA ALFARO Attending Clinician Unavailable Doctor Unassigned, [place] Attending Clinician Unavailable Payers Payer Name Policy Type Policy Number Effective Date Expiration Date S ource Problems This patient has no known problems. Allergies, Adverse Reactions, Alerts Allergy Allergy Status Severity Reaction(s) Onset Inactive Treating Comm ents Source Name Type Date Date Clinician NO KNOWN Drug Active Univers ALLERGIE Class ity of [facility] Social History Social Habit Start Date Stop Date Quantity Comments Source Exposure to Not sure [facility] SARS-CoV-2 (event) Medica l Branch Sex Assigned At [birth year] [facility] 00:00:00 00:00:00 [facility] Smoking Status Start Date Stop Date Source Unknown if ever smoked [facility] Medications Ordered Filled Start Stop Current Ordering Indication Dosage Frequency Signature Comments Components Source Medication Medication Date Date Medication? Clinician (SIG) Name Name Dose 2021-0 No Unknown 7-13 00:00: 00 &lt 2021-0 No 100 7-13 00:00: 00 Dose 2021-0 No Unknown 7-13 00:00: 00 TAKE ONE 2021-0 No 800 (1) TABLET 7-13 BY MOUTH 00:00: EVERY 8 00 HOURS NEEDED. TAKE ONE 2021-0 No 250 (1) 7-13 TABLET(S) 00:00: BY MOUTH 00 TWICE A DAY. TAKE ONE 2021-0 No 750 (1) TABLET 7-13 BY MOUTH 00:00: TWICE A DAY 00 NEEDED FOR MUSCLE SPASMS. &lt 2021-0 No 75 7-13 00:00: 00 TAKE ONE 2021-0 No 100 (1) 7-13 CAPSULE(S) 00:00: BY MOUTH 00 TWICE A DAY. &lt 2-0 No 4 7-13 00:00: 00 Dose 2-0 No Unknown 4-26 00:00: 00 Dose 2022-0 No Unknown 3-25 00:00: 00 Dose 2-0 No Unknown 3-25 00:00: 00 Dose 2-0 No Unknown 3-25 00:00: 00 Dose 2-0 No Unknown 3-25 00:00: 00 Dose 2-0 No Unknown 3-25 00:00: 00 Dose 2-0 No Unknown 3-25 00:00: 00 Dose 2-0 No Unknown 3-25 00:00: 00 Dose 2022-0 No Unknown 3-25 00:00: 00 Dose 2022-0 No Unknown 3-25 00:00: 00 Dose 2022-0 No Unknown 3-25 00:00: 00 Dose 2022-0 No Unknown 3-25 00:00: 00 Dose 2022-0 No Unknown 3-25 00:00: 00 Dose 2022-0 No Unknown 3-25 00:00: 00 Dose 2022-0 No Unknown 3-25 00:00: 00 Dose 2022-0 No Unknown 3-25 00:00: 00 Dose 2022-0 No Unknown 3-25 00:00: 00 Dose 2020-1 No Unknown 2-07 00:00: 00 ibuprofen 2020-1 No 1mg 800 mg 2-07 tablet 00:00: 00 ciprofloxac 2020-1 No 1mg in 250 mg 0-23 tablet 00:00: 00 Dose 2020-1 No Unknown 0-23 00:00: 00 diclofenac 2020-0 No 1mg sodium 50 8-09 mg 00:00: tablet,bro 00 yed release cyclobenzap 2020-0 No 12mg rine 5 mg 8-09 tablet 00:00: 00 sumatriptan 2020-0 No 1mg 50 mg 5-17 tablet 00:00: 00 Macrobid 2020-0 No 1mg 100 mg 4-13 capsule 00:00: 00 hydrocortis 2020-0 No 1% one 1 % 3-24 topical 00:00: cream 00 naproxen 2020-0 No 1mg 500 mg 3-24 tablet 00:00: 00 Macrobid 2020-0 No 1mg 100 mg 2-10 capsule 00:00: 00 prednisone 1-0 No 1mg 20 mg 1-30 tablet 00:00: 00 naproxen 1-0 No 1mg 500 mg 1-30 tablet 00:00: 00 cyclobenzap 2020-0 No 12mg rine 5 mg 1-30 tablet 00:00: 00 Ciprodex 2020-0 No 4% 0.3 %-0.1 % 6-12 ear 00:00: drops,suspe 00 nsion Immunizations Ordered Immunization Filled Immunization Date Status Commen ts Source Name Name Berny LOBATO 2020-12-13 Completed Vaccine 00:00:00 Vital Signs Vital Name Observation Time Observation Value Comments Source BP Systolic 2022-01-14 16:06:00 106 mm[Hg] BP Diastolic 2022-01-14 16:06:00 73 mm[Hg] Weight Measured 2022-01-14 16:06:00 210.60 pounds Height Measured 2022-01-14 16:06:00 65.75 inches Body Temperature 2022-01-14 16:06:00 97.50 degrees Heart Rate 2022-01-14 16:06:00 87.00 /min Respiratory Rate 2022-01-14 16:06:00 BP Systolic 2021-12-13 15:19:00 108 mm[Hg] BP Diastolic 2021-12-13 15:19:00 79 mm[Hg] Weight Measured 2021-12-13 15:19:00 204.00 pounds Height Measured 2021-12-13 15:19:00 65.75 inches Body Temperature 2021-12-13 15:19:00 96.20 degrees Heart Rate 2021-12-13 15:19:00 66.00 /min Respiratory Rate 2021-12-13 15:19:00 BP Systolic 2021-08-27 17:19:00 105 mm[Hg] BP Diastolic 2021-08-27 17:19:00 73 mm[Hg] Weight Measured 2021-08-27 17:19:00 199.60 pounds Height Measured 2021-08-27 17:19:00 65.75 inches Body Temperature 2021-08-27 17:19:00 97.70 degrees Heart Rate 2021-08-27 17:19:00 79.00 /min Respiratory Rate 2021-08-27 17:19:00 17.00 /min BP Systolic 2021-07-13 15:47:00 104 mm[Hg] BP Diastolic 2021-07-13 15:47:00 70 mm[Hg] Weight Measured 2021-07-13 15:47:00 195.02 pounds Height Measured 2021-07-13 15:47:00 65.75 inches Body Temperature 2021-07-13 15:47:00 98.40 degrees Heart Rate 2021-07-13 15:47:00 83.00 /min Respiratory Rate 2021-07-13 15:47:00 Respiratory Rate 2021-06-07 14:58:00 BP Systolic 2021-06-07 14:58:00 101 mm[Hg] BP Diastolic 2021-06-07 14:58:00 68 mm[Hg] Weight Measured 2021-06-07 14:58:00 203.40 pounds Height Measured 2021-06-07 14:58:00 65.75 inches Body Temperature 2021-06-07 14:58:00 98.20 degrees Heart Rate 2021-06-07 14:58:00 101.00 /min BP Systolic 2021-04-29 16:24:00 128 mm[Hg] BP Diastolic 2021-04-29 16:24:00 73 mm[Hg] Weight Measured 2021-04-29 16:24:00 198.20 pounds Height Measured 2021-04-29 16:24:00 65.75 inches Body Temperature 2021-04-29 16:24:00 98.00 degrees Heart Rate 2021-04-29 16:24:00 102.00 /min Respiratory Rate 2021-04-29 16:24:00 BP Systolic 2021-03-21 10:23:00 127 mm[Hg] BP Diastolic 2021-03-21 10:23:00 77 mm[Hg] Weight Measured 2021-03-21 10:23:00 194.00 pounds Height Measured 2021-03-21 10:23:00 65.75 inches Body Temperature 2021-03-21 10:23:00 98.70 degrees Heart Rate 2021-03-21 10:23:00 72.00 /min Respiratory Rate 2021-03-21 10:23:00 17.00 /min BP Systolic 2021-02-04 16:13:00 127 mm[Hg] BP Diastolic 2021-02-04 16:13:00 79 mm[Hg] Weight Measured 2021-02-04 16:13:00 201.80 pounds Height Measured 2021-02-04 16:13:00 65.75 inches Body Temperature 2021-02-04 16:13:00 99.40 degrees Heart Rate 2021-02-04 16:13:00 92.00 /min Respiratory Rate 2021-02-04 16:13:00 17.00 /min BP Systolic 2021-01-01 16:25:00 105 mm[Hg] BP Diastolic 2021-01-01 16:25:00 72 mm[Hg] Weight Measured 2021-01-01 16:25:00 197.40 pounds Height Measured 2021-01-01 16:25:00 65.75 inches Body Temperature 2021-01-01 16:25:00 98.70 degrees Heart Rate 2021-01-01 16:25:00 90.00 /min Respiratory Rate 2021-01-01 16:25:00 16.00 /min BP Systolic 2020-12-12 16:04:00 110 mm[Hg] BP Diastolic 2020-12-12 16:04:00 68 mm[Hg] Weight Measured 2020-12-12 16:04:00 201.20 pounds Height Measured 2020-12-12 16:04:00 65.75 inches Body Temperature 2020-12-12 16:04:00 98.50 degrees Heart Rate 2020-12-12 16:04:00 76.00 /min Respiratory Rate 2020-12-12 16:04:00 16.00 /min Procedures Procedure Date / Time Performed Performing Clinician [facility] e BI ULTRASOUND BREAST 2021-06-11 17:06:45 Requisition, Paper [facility] [place] LIMITED LEFT Medical Branch BI ULTRASOUND BREAST 2021-04-09 18:58:[address] [facility] COMPLETE LEFT Medical Branch CONSENT/REFUSAL FOR 2021-04-09 18:20:12 Doctor Unassigned, No [facility] DIAGNOSIS AND Name Medical Branch TREATMENT ASSIGNMENT OF BENEFITS 2021-04-09 18:19:57 Doctor Unassigned, No [facility] Name Medical Branch Plan of Care Planned Activity Planned Date Details Comments Source Goal Plan of Care Note [code = 53013-8] Goal Plan of Care Note [code = 28002-5] Goal Plan of Care Note [code = 27465-9] Goal Plan of Care Note [code = 36972-0] Goal Plan of Care Note [code = 61337-4] Goal Plan of Care Note [code = 54212-1] Goal Plan of Care Note [code = 08931-3] Goal Plan of Care Note [code = 30466-9] Goal Plan of Care Note [code = 79476-2] Goal Plan of Care Note [code = 36197-7] Goal Plan of Care Note [code = 57783-4] Goal Plan of Care Note [code = 51026-4] Goal Plan of Care Note [code = 72666-3] Goal Plan of Care Note [code = 83172-8] Goal Plan of Care Note [code = 41390-9] Goal Plan of Care Note [code = 72746-8] Goal Plan of Care Note [code = 62498-6] Goal Plan of Care Note [code = 74359-6] Goal Plan of Care Note [code = 04268-9] Goal Plan of Care Note [code = 45940-5] Goal Plan of Care Note [code = 36303-0] Goal Plan of Care Note [code = 86636-0] Goal Plan of Care Note [code = 02204-9] Goal Plan of Care Note [code = 02713-5] Goal Plan of Care Note [code = 12336-2] Goal Plan of Care Note [code = 37579-7] Goal Plan of Care Note [code = 07836-9] Goal Plan of Care Note [code = 16276-2] Goal Plan of Care Note [code = 68689-4] Goal Plan of Care Note [code = 06499-5] Goal Plan of Care Note [code = 41775-3] Encounters Start End Encounter Admission Attending Care Care Encounter Source Date/Time Date/Time Type Type Clinicians Facility Department ID 2022-04-02 2022-04-02 Outpatient [id number] 00:00:00 00:00:00 Visit [id number] 2021-06-14 2021-06-14 Outpatient R RADIOLOGY [facility] [id number] Univers 17:00:00 17:00:00 [id number] ity of [facility] 2021-06-11 2021-06-11 Hospital Radiology [facility] [id number] Univers 11:00:00 23:59:00 Encounter Asif [id number] ity of [place] 4.2.7.2.686 [facility] [id number] [address] 2021-06-11 2021-06-11 Outpatient [facility] [id number] Univers 11:00:00 11:00:00 [id number] ity of [facility] 2021-06-11 2021-06-11 Outpatient R RADIOLOGY [facility] [id number] Univers 00:00:00 00:00:00 ity of [facility] 2021-04-09 2021-04-09 [facility] [id number] Univers 13:23:46 23:59:00 Encounter Theodora Gold [id number] ity of [place] 4.2.7.2.686 [facility] [id number] [address] 2021-04-09 2021-04-09 Outpatient R [facility] [id number] Univers 00:00:00 00:00:00 THEODORA avendano [facility] 2021-04-09 2021-04-09 Orders Doctor MENDOZA [id number] Univers 00:00:00 00:00:00 Only Unassigned, ROXY [id number] ity of [place] [facility] [id number] [facility] [id number] [place] [address] Branch Results Test Description Test Time Test Comments Results Result Comments Source CULTURE, URINE 2022-01-17 SPECIMEN NUMBER: 09:59:34 [id number] CULTURE, URINE SPECIMEN NUMBER: [id number] SPECIMEN COMMENT: URINE SOURCE: URINE REPORT STATUS: FINAL FINAL REPORT: 01/17/2022 NO GROWTH AFTER 36 HOURS INCUBATION CULTURE, URINE 2022-01-17 00:00:00 Test Item Value Reference Range Interpretation Comme nts CULTURE, URINE (test code = 91776) SPECIMEN NUMBER: [id number] CT/NG, NAAT, [id number] 19:42:47 Test Item Value Reference Range Interpretation Comments GONORRHEA, NAAT NEGATIVE NEGATIVE IMPORTA NT NOTICE: SEE (test code = [place] [address]) [email or web address] Note: Assay methodology is nucleic acid amplification b y load mixer m ediated amplification ( TMA) utilizing the A ptima Combo 2 Assay. CHLAMYDIA, NAAT NEGATIVE NEGATIVE IMPORTA NT NOTICE: SEE (test code = [place] [address]) [email or web address] [email or web address] Note: Assay methodology is nucleic acid amplification b y load mixer m ediated amplification ( TMA) utilizing the A ptima Combo 2 Assay. [id number] 05:01:34 Test Item Value Reference Range Interpretation Comments RPR RESULT (test NON-REACTIVE NON-REACTIVE code = 3501) RPR TITER (test NOT INDIC. NOT INDIC. UNLESS OTHE RWISE code = 3500) TITER INDICATED, ALL TESTING PERFORMED [facility] [address] [place] [address] 4 LABORATORY DIRE CTOR: DEDRICK HOOD M.D. CLIA NUMBER [id number] [place] [id number] HIV 1/2 4TH GEN, RFLX [id number] 03:50:31 Test Item Value Reference Range Interpretation Comments HIV 1/2 4TH GEN, RFLX CONF (test NON-REACTIVE NON-REACTIVE code = 3514) HEPATITIS PANEL, [id number] 03:50:31 Test Item Value Reference Range Interpretation Comments HEPATITIS A IgM (test NON-REACTIVE NON-REACTIVE code = 30118) HEPATITIS B CORE IgM NON-REACTIVE NON-REACTIVE (test code = 4644) HEPATITIS B SURF AG NON-REACTIVE NON-REACTIVE (test code = 2739) HEPATITIS C ANTIBODY NON-REACTIVE NON-REACTIVE (test code = 4675) INTERPRETATION (NOTE) Hepatitis A HEPATITIS A: (test code sero logy shows no = 2552) evidence of acu te hepatitis A. INTERPRETATION (NOTE) Hepatitis B HEPATITIS B: (test code sero logy shows no = 03353) evidence of acu te hepatitis B and no indication of exposure to hepatitis B vir us in the previous [place] eight months. INTERPRETATION (NOTE) Hepatitis C HEPATITIS C: (test code sero logy shows no = 03178) evidence of exposure to hepatitisC viru s at this time. I t can take up to 12 months after exposure tothe hepatitis C vir us for antibodies to become detectab le in the blood in certain patient s. GC AND CHLAMYDIA, AMPLIFIED, [id number] 00:00:00 Test Item Value Reference Range Interpretation Comments GONORRHEA, NAAT (test code = 72629) NEGATIVE CHLAMYDIA, NAAT (test code = 32797) NEGATIVE [id number] 00:00:00 Test Item Value Reference Range Interpretation Comments RPR RESULT (test code = NON-REACTIVE 3501) RPR TITER (test code = 3500) NOT INDIC. TITER [id number] 00:00:00 Test Item Value Reference Range Interpretation Comments RPR RESULT (test code = NON-REACTIVE 3501) RPR TITER (test code = 3500) NOT INDIC. TITER HIV AB/AG COMBO RFLX [id number] 00:00:00 Test Item Value Reference Range Interpretation Comments HIV 1/2 4TH GEN, RFLX CONF (test NON-REACTIVE code = 3514) ACUTE HEPATITIS [id number] 00:00:00 Test Item Value Reference Range Interpretation Comments HEPATITIS A IgM (test code = NON-REACTIVE 92440) HEPATITIS B CORE IgM (test code NON-REACTIVE = 4644) HEPATITIS B SURF AG (test code = NON-REACTIVE 2739) HEPATITIS C ANTIBODY (test code NON-REACTIVE = 4675) INTERPRETATION HEPATITIS A: (NOTE) (test code = 2552) INTERPRETATION HEPATITIS B: (NOTE) (test code = 30794) INTERPRETATION HEPATITIS C: (NOTE) (test code = 00210) URINE CULTURE, NO [id number] 00:00:00 Test Item Value Reference Range Interpretation Comments URINE CULTURE, NO SPECIMEN NUMBER: SENS (test code = [id number] 52136) COMPREHENSIVE METABOLIC [id number] 00:00:00 Test Item Value Reference Range Interpretation Comments GLUCOSE (test code = 2217) 88 MG/DL BUN (test code = 2208) 8 MG/DL CREATININE (test code = 2214) 0.76 MG/DL eGFR AMER. (test code 125 ML/MIN/1.73 = 57893) eGFR NON- AMER. (test 108 ML/MIN/1.73 code = 44605) CALC BUN/CREAT (test code = 11 RATIO 2235) SODIUM (test code = 2231) 139 MEQ/L POTASSIUM (test code = 2228) 4.3 MEQ/L CHLORIDE (test code = 2215) 100 MEQ/L CARBON DIOXIDE (test code = 19 MEQ/L 2205) CALCIUM (test code = 2209) 9.4 MG/DL PROTEIN, TOTAL (test code = 7.1 G/DL 2228) ALBUMIN (test code = 2201) 4.4 G/DL CALC GLOBULIN (test code = 2.7 G/DL 0) CALC A/G RATIO (test code = 1.6 RATIO 4) BILIRUBIN, TOTAL (test code = 0.2 MG/DL 2206) ALKALINE PHOSPHATASE (test 91 U/L code = 2204) AST (test code = 2218) 34 U/L ALT (test code = 2219) 29 U/L LIPID [id number] 00:00:00 Test Item Value Reference Range Interpretation Comments CHOLESTEROL (test code = 2210) 142 MG/DL TRIGLYCERIDES (test code = 2232) 125 MG/DL HDL CHOLESTEROL (test code = 2220) 51 MG/DL CALC LDL CHOL (test code = 2237) 70 MG/DL RISK RATIO LDL/HDL (test code = 1.37 RATIO 2238) [id number] 00:00:00 Test Item Value Reference Range Interpretation Comments TSH, THIRD GENERATION (test code 0.825 UIU/ML = 2821) [id number] 00:00:00 Test Item Value Reference Range Interpretation Comments TSH, THIRD GENERATION (test code 0.825 UIU/ML = 2821) CBC W/AUTO [id number] 00:00:00 Test Item Value Reference Range Interpretation Comments WBC (test code = 1001) 6.2 K/UL RBC (test code = 1002) 4.74 M/UL HEMOGLOBIN (test code = 1003) 13.3 G/DL HEMATOCRIT (test code = 1004) 39.4 % MCV (test code = 1005) 83.1 fL MCH (test code = 1006) 28.1 PG MCHC (test code = 1007) 33.8 G/DL RDW (test code = 1038) 12.6 % NEUTROPHILS (test code = 1008) 44.8 % LYMPHOCYTES (test code = 1010) 40.9 % MONOCYTES (test code = 1011) 10.0 % EOSINOPHILS (test code = 1012) 3.2 % BASOPHILS (test code = 1013) 0.6 % IMMATURE GRANULOCYTES (test 0.5 % code = 1036) NUCLEATED RBCS (test code = 0.0 /100WBC'S 1065) PLATELET COUNT (test code = 234 K/UL 1015) ABSOLUTE NEUTROPHILS (test code 2.78 K/UL = 1066) ABSOLUTE LYMPHOCYTES (test code 2.54 K/UL = 1067) ABSOLUTE MONOCYTES (test code = 0.62 K/UL 1068) ABSOLUTE EOSINOPHILS (test code 0.20 K/UL = 1040) ABSOLUTE BASOPHILS (test code = 0.04 K/UL 1069) ABS IMMATURE GRANULOCYTES (test 0.03 K/UL code = 1020) ABS NUCLEATED RBCS (test code = 0.00 K/UL 36390) CBC W/AUTO [id number] 00:00:00 Test Item Value Reference Range Interpretation Comments WBC (test code = 1001) 6.2 K/UL RBC (test code = 1002) 4.74 M/UL HEMOGLOBIN (test code = 1003) 13.3 G/DL HEMATOCRIT (test code = 1004) 39.4 % MCV (test code = 1005) 83.1 fL MCH (test code = 1006) 28.1 PG MCHC (test code = 1007) 33.8 G/DL RDW (test code = 1038) 12.6 % NEUTROPHILS (test code = 1008) 44.8 % LYMPHOCYTES (test code = 1010) 40.9 % MONOCYTES (test code = 1011) 10.0 % EOSINOPHILS (test code = 1012) 3.2 % BASOPHILS (test code = 1013) 0.6 % IMMATURE GRANULOCYTES (test 0.5 % code = 1036) NUCLEATED RBCS (test code = 0.0 /100WBC'S 1065) PLATELET COUNT (test code = 234 K/UL 1015) ABSOLUTE NEUTROPHILS (test code 2.78 K/UL = 1066) ABSOLUTE LYMPHOCYTES (test code 2.54 K/UL = 1067) ABSOLUTE MONOCYTES (test code = 0.62 K/UL 1068) ABSOLUTE EOSINOPHILS (test code 0.20 K/UL = 1040) ABSOLUTE BASOPHILS (test code = 0.04 K/UL 1069) ABS IMMATURE GRANULOCYTES (test 0.03 K/UL code = 1020) ABS NUCLEATED RBCS (test code = 0.00 K/UL 59333) BI ULTRASOUND BREAST COMPLETE [id number] 19:25:31Examination:BI ULTRASOUND BREAST COMPLETE LEFT History:Patient is 26 year old and is seen for: ?Unspe cified lump in the left breast, upper inner [...] There is no sonographic evidence of malignancy. Recommendation:Follow-up at age 39 or basedon current ACR guidelines Clinical follow-up is also recommended, and further management of clinicalfindings should be based on the results of clinical evaluation. BI-RADS Category:Left 1 - [facility]Un[facility]AGIN[facility] PATHOGENS DNA [id number] 00:00:00 Test Item Value Reference Range Interpretation Comments KAYE SPECIES (test code = ) NEGATIVE G. VAGINALIS (test code = ) NEGATIVE T. VAGINALIS (test code = ) NEGATIVE PAP TEST, THINPREP, [id number] 00:00:00 Test Item Value Reference Range Interpretation Comments SOURCE: (test code = Cervical/Endocervical 8001) SLIDES: (test code = 1 8011) LMP: (test code = 8021) 02/20/2021 SPECIMEN ADEQUACY: (test (NOTE) code = 63208) INTERPRETATION: (test NILM/NO EPITH. 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: (test Sujatha code = 8101) SHIVA Tijerina(ASCP) LOCATION: (test code = (NOTE) 31830) CPT: (test code = 8140) (NOTE) GC AND CHLAMYDIA AMPLIFIED, [id number] 00:00:00 Test Item Value Reference Range Interpretation Comments GONORRHEA, TMA (test code = 03903) NEGATIVE CHLAMYDIA, TMA (test code = 78312) NEGATIVE HIV AB/AG COMBO RFLX [id number] 00:00:00 Test Item Value Reference Range Interpretation Comments HIV 1/2 4TH GEN, RFLX CONF (test NON-REACTIVE code = 3514) [id number] 00:00:00 Test Item Value Reference Range Interpretation Comments RPR RESULT (test code = NON-REACTIVE 3501) RPR TITER (test code = 3500) NOT INDIC. TITER HPV HIGH RISK WITH GENOTYPE, [id number] 00:00:00 Test Item Value Reference Range Interpretation Comments HPV HIGH RISK INTERP (test code = NEGATIVE 00573) HPV 16 (test code = 45461) NEGATIVE HPV 18 (test code = 55731) NEGATIVE HPV, HR, OTHER GENOTYPES (test code NEGATIVE = 89728) [id number] 00:00:00 Test Item Value Reference Range Interpretation Comments RPR RESULT (test code = NON-REACTIVE 3501) RPR TITER (test code = 3500) NOT INDIC. TITER SARS-CoV-2 (COVID-19) by RT-PCR (HIGH RISK)2020-08-02 00:00:00 Test Item Value Reference Range Interpretation Comments SARS-CoV-2 INTERPRETATION Negative (test code = 18212) SOURCE (test code = 18631) Nasal_Swab_in_VTM__ UTM
[2022-05-22] MEDS ORDERED: CYCLOBENZAPRINE 10 MG TAB ONE (10:43)
[2022-05-22] MEDS ORDERED: KETOROLAC 30 MG/ML INJ ONE (10:43)
--- NOTE | 2022-05-22 11:00 | RAD REPORT ---
EXAM DESCRIPTION: RAD - Shoulder Left 2 View - 05/22/2022 10:48 am CLINICAL HISTORY: PAIN COMPARISON: No comparisons TECHNIQUE: Internal and external rotation views of the left shoulder were obtained. FINDINGS: There is no fracture or dislocation. AC joint is normal in appearance. No acute or suspici ous findings. IMPRESSION: Negative two-view left shoulder examination for acute or significant findings.
--- NOTE | 2022-05-22 11:15 | EDPHYS ---
Physician Documentation [facility] Name: Nell Huffman Age: 27 yrs Sex: Female : 1995 Arrival Date: 05/22/2022 Time: 10:20 Bed 14 Private MD: ED Physician David Paz HPI: 05/22 10:30 This 27 yrs old Female presents to ER via Unassigned with complaints of left jl9 shoulder pain. Patient reports straining her left shoulder over 1 year ago and that this is a chronic problem but her pain is worse today.. 10:30 The patient or guardian complains of pain. The complaints affect the anterior aspect of jl9 left shoulder. Context: resulted from a chronic condition. Onset: The symptoms/episode began/occurred this morning. Treatment prior to arrival includes: over the counter medications. Modifying factors: The symptoms are alleviated by remaining still, the symptoms are aggravated by movement. Severity of symptoms: in the emergency department the symptoms a " 6" out of "10". The patient has experienced similar episodes in the past. 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 - Social history:: Smoking status: Patient denies any tobacco usage or history of. ROS: 10:31 Constitutional: Negative for fever, chills, and weight loss, Eyes: Negative for injury, jl9 pain, redness, and discharge, ENT: Negative for injury, pain, and discharge, Neck: Negative for injury, pain, and swelling, Cardiovascular: Negative for chest pain, palpitations, and edema, Respiratory: Negative for shortness of breath, cough, wheezing, and pleuritic chest pain, Abdomen/GI: Negative for abdominal pain, nausea, vomiting, diarrhea, and constipation, Back: Negative for injury and pain. 10:31 Skin: Negative for injury, rash, and discoloration, Neuro: Negative for headache, weakness, numbness, tingling, and seizure, Psych: Negative for depression, anxiety, suicide ideation, homicidal ideation, and hallucinations, Allergy/Immunology: Negative for hives, rash, and allergies, Endocrine: Negative for neck swelling, polydipsia, polyuria, polyphagia, and marked weight changes, Hematologic/Lymphatic: Negative for swollen nodes, abnormal bleeding, and unusual bruising. 10:31 MS/extremity: Positive for decreased range of motion, pain. Exam: 10:32 Constitutional: This is a well developed, well nourished patient who is awake, alert, jl9 and in no acute distress. Head/Face: Normocephalic, atraumatic. Eyes: Pupils equal round and reactive to light, extra-ocular motions intact. Lids and lashes normal. Conjunctiva and sclera are non-icteric and not injected. Cornea within normal limits. Periorbital areas with no swelling, redness, or edema. ENT: Mucous membranes moist. Neck: Trachea midline, no thyromegaly or masses palpated, and no cervical lymphadenopathy. Supple, full range of motion without nuchal rigidity, or vertebral point tenderness. No Meningismus. Chest/axilla: Normal chest wall appearance and motion. Nontender with no deformity. No lesions are appreciated. Cardiovascular: Regular rate and rhythm with a normal S1 and S2. No gallops, murmurs, or rubs. Normal PMI, no JVD. No pulse deficits. Respiratory: Lungs have equal breath sounds bilaterally, clear to auscultation and percussion. No rales, rhonchi or wheezes noted. No increased work of breathing, no retractions or nasal flaring. Abdomen/GI: Soft, non-tender, with normal bowel sounds. No distension or tympany. No guarding or rebound. No evidence of tenderness throughout. Back: No spinal tenderness. No costovertebral tenderness. Full range of motion. Skin: Warm, dry with normal turgor. Normal color with no rashes, no lesions, and no evidence of cellulitis. 10:32 Neuro: Awake and alert, GCS 15, oriented to person, place, time, and situation. Cranial nerves II-XII grossly intact. Motor strength 5/5 in all extremities. Sensory grossly intact. Cerebellar exam normal. Normal gait. Psych: Awake, alert, with orientation to person, place and time. Behavior, mood, and affect are within normal limits. 10:32 Musculoskeletal/extremity: Extremities: grossly normal except: pain, ROM: limited active range of motion due to pain, in the left arm, Circulation is intact in all extremities. Sensation intact. Compartment Syndrome exam of affected extremity: Vital Signs: 10:30 BP 121 / 84; Pulse 85; Resp 16; Temp 97.9; Pulse Ox 100% ; Weight 95.25 kg; Height 5 ll1 ft. 5 in. (165.10 cm); Pain 9/10; 11:26 BP 103 / 80; Pulse 70; Pain 7/10; ll1 10:30 Body Mass Index 34.95 (95.25 kg, 165.10 cm) ll1 MDM: 10:23 Patient medically screened. jl9 10:32 Data reviewed: vital signs, nurses notes. jl9 11:14 Counseling: I had a detailed discussion with the patient and/or guardian regarding: the jl9 historical points, exam findings, and any diagnostic results supporting the discharge/admit diagnosis, radiology results, the need for outpatient follow up, to return to the emergency department if symptoms worsen or persist or if there are any questions or concerns that arise at home. Response to treatment: the patient's symptoms have markedly improved after treatment. 05/22 10:30 Order name: XRAY Shoulder LEFT 2 view; Complete Time: 11:04 jl9 Administered Medications: 10:42 Drug: Cyclobenzaprine 10 mg Route: PO; ll1 11:26 Follow up: Response: No adverse reaction; Pain is decreased; RASS: Alert and Calm (0) ll1 10:42 Drug: Ketorolac 60 mg {Note: pain 9/10, rass 0.} Route: IM; Site: left gluteus; ll1 11:26 Follow up: Response: No adverse reaction; Pain is decreased; RASS: Alert and Calm (0) ll1 Disposition: 18:51 Co-signature as Attending Physician, David GARNETT was immediately available on-site ms3 in the emergency department for consultation in the care of the patient.. Disposition Summary: 05/22/22 11:14 Discharge Ordered Location: Home jl9 Condition: Stable jl9 Diagnosis - Pain in left shoulder jl9 Followup: jl9 - With: Private Physician - When: 1 - 2 days - Reason: Recheck today's complaints, Continuance of care, Re-evaluation by your physician Discharge Instructions: - Discharge Summary Sheet jl9 - Shoulder Pain, [id number] jl9 Forms: - Medication Reconciliation Form jl9 - Work release form ss - Thank You Letter jl9 - Antibiotic Education jl9 - Prescription Opioid Use jl9 Prescriptions: - Ibuprofen 800 mg Oral Tablet - take 1 tablet by ORAL route every 8 hours As needed take with food; 30 tablet; jl9 Refills: 0, Product Selection Permitted - Cyclobenzaprine 10 mg Oral Tablet - take 1 tablet by ORAL route every 8 hours As needed; 30 tablet; Refills: 0, jl9 Product Selection Permitted Signatures: Dispatcher [employer] Jennifer Ellis RN RN ll1 David Paz DO DO ms3 Alf Patton jl9
--- NOTE | 2022-05-22 11:15 | ER ---
Nurse's Notes [facility] Name: Nell Huffman Age: 27 yrs Sex: Female : 1995 Arrival Date: 05/22/2022 Time: 10:20 Bed 14 Private MD: Diagnosis: Pain in left shoulder Presentation: 05/22 10:30 Chief complaint: Patient states: L upper shoulder/arm pain has slowly gotten worse over ll1 the past 6 months. No new trauma or falls. Repeated use at work. Coronavirus screen: Vaccine status: Patient reports receiving the 2nd dose of the covid vaccine. Client denies travel out of the [place] in the last 14 days. At this time, the client does not indicate any symptoms associated with coronavirus-19. Ebola Screen: Patient denies travel to an Ebola-affected area in the 21 days before illness onset. Initial Sepsis Screen: Does the patient meet any 2 criteria? No. Patient's initial sepsis screen is negative. Does the patient have a suspected source of infection? No. Patient's initial sepsis screen is negative. Risk Assessment: Do you want to hurt yourself or someone else? Patient reports no desire to harm self or others. Onset of symptoms was November 19, 2021. 10:30 Method Of Arrival: Ambulatory ll1 10:30 Acuity: KEN 4 ll1 Triage Assessment: 10:31 General: Appears uncomfortable, Behavior is calm, cooperative, appropriate for age. ll1 Pain: Complains of pain in anterior aspect of left shoulder Pain currently is 9 out of 10 on a pain scale. Quality of pain is described as aching, throbbing, Aggravated by increased activity. Musculoskeletal: Circulation, motion, and sensation intact. Capillary refill < 3 seconds, Reports pain in anterior aspect of left shoulder. 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 - Social history:: Smoking status: Patient denies any tobacco usage or history of. Screenin:32 Abuse screen: Denies threats or abuse. Nutritional screening: No deficits noted. ll1 Tuberculosis screening: No symptoms or risk factors identified. Fall Risk Total [place] Fall Scale indicates No Risk (0-24 pts). Assessment: 11:27 Reassessment: No changes from previously documented assessment. Patient and/or family ll1 updated on plan of care and expected duration. Pain level reassessed. Patient is alert, oriented x 3, equal unlabored respirations, skin warm/dry/pink. Vital Signs: 10:30 BP 121 / 84; Pulse 85; Resp 16; Temp 97.9; Pulse Ox 100% ; Weight 95.25 kg; Height 5 ll1 ft. 5 in. (165.10 cm); Pain 9/10; 11:26 BP 103 / 80; Pulse 70; Pain 7/10; ll1 10:30 Body Mass Index 34.95 (95.25 kg, 165.10 cm) ll1 ED Course: 10:20 Patient arrived in ED. mr 10:23 Alf Patton is PHCP. jl9 10:23 David Paz DO is Attending Physician. jl9 10:30 Jennifer Stout, JOSE M is Primary Nurse. ll1 10:30 Arm band placed on Patient placed in an exam room, on a stretcher. ll1 10:31 Triage completed. ll1 10:32 Patient has correct armband on for positive identification. Bed in low position. Call ll1 light in reach. Side rails up X 1. Cardiac monitoring not applicable on this patient. 10:50 XRAY Shoulder LEFT 2 view In Process Unspecified. EDMS 11:27 No provider procedures requiring assistance completed. Patient did not have IV access ll1 during this emergency room visit. Administered Medications: 10:42 Drug: Cyclobenzaprine 10 mg Route: PO; ll1 11:26 Follow up: Response: No adverse reaction; Pain is decreased; RASS: Alert and Calm (0) ll1 10:42 Drug: Ketorolac 60 mg {Note: pain 9/10, rass 0.} Route: IM; Site: left gluteus; ll1 11:26 Follow up: Response: No adverse reaction; Pain is decreased; RASS: Alert and Calm (0) ll1 Medication: 10:32 VIS not applicable for this client. ll1 Outcome: 11:14 Discharge ordered by . jl9 11:27 Discharged to home ambulatory. ll1 11:27 Condition: stable 11:27 Discharge instructions given to patient, family, Instructed on discharge instructions, follow up and referral plans. no drinking with medication, no driving heavy equipment, medication usage, Demonstrated understanding of instructions, follow-up care, medications, Prescriptions given X 2. 11:28 Patient left the ED. ll1 Signatures: Dispatcher [employer] Mala Brandon Lynsay, RN RN ll1 Alf Patton jl9
[2022-05-22 11:32] VITALS: TEMP 97.9; O2SAT 100
[2022-05-22 11:34] VITALS: BP 103/80
== END 2022-05-22 11:28 | disposition home or self-care (01) ==
LOC: ER 10:16
DX: M25.512 Pain in left shoulder (principal)
CPT/HCPCS: 96372; 99283